=== PATIENT | male | born 1960 | race Caucasian/White ===

== ENCOUNTER 2023-08-16 10:28 | Outpatient (AMB) | payer OTHER, MEDICAID, SELFPAY ==
--- NOTE | 2023-08-16 10:55 | MHC.OFFVIS ---
Intake Vital Signs 08/16/23 10:56 Height 5 ft 2 in Weight 135 lb BMI 24.7 BP 110/70 Blood Pressure Location Rt brachial Position Sitting Respiration 17 Pulse 67 Pulse Source Pulse Oximeter Pulse Oximetry (%) 96 Oxygen Delivery Method Room Air Intake Visit Reasons: ENP-Chronic Insomnia - confirmed Intake Note: Pt presents tothe office for new pt evaluation for insomnia. Pt reports he has trouble staying asleep for the past 5 years. 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 Allergies nuts Allergy (Mild, Uncoded 08/16/23 10:56) Unknown Medication List - Last Reconciled 08/16/23 by Everton Devine CNP alendronate 70 mg PO QWEEK baclofen 10 mg PO TID calcium carbonate-vitamin D3 500 mg-10 mcg (400 unit) (Calcium 500 With D) 1 tab PO DAILY cetirizine (All Day Allergy (cetirizine)) 10 mg PO DAILY PRN epinephrine IM ONCE gabapentin 600 mg PO TID magnesium oxide 400 mg PO DAILY 30 days naloxone 4 mg/actuation (Narcan) 0 sprays intranasal nystatin 1 appl topical BID oxybutynin chloride ER 15 mg PO DAILY oxycodone ER (OxyContin) 20 mg PO TID pravastatin 40 mg PO DAILY siponimod (Mayzent) 0 mg PO tamsulosin 0.4 mg PO DAILY varenicline 1 mg PO BID HPI HPI Comments History of Present Illness Details 63 y/o male patient presents for new in-person visit for sleep consultation. Pt states that he does not sleep well. He can fall asleep but having difficulty staying sleep. He uses melatonin 5 mg, but wakes up in the middle of night. Pt reports he has hx of sleep apnea but he never had CPAP, and scheduled for a repeat sleep study in October. He usually sleep in his power wheel chair which the seat reclined and he feels he sleeps well in it. 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 Sleep questionnaire: Have you ever been diagnosed with a sleep disorder? Insomnia and BERENICE. Have you ever had a sleep study in the past? Yes, in the past. Have you ever been treated for a sleep disorder? No. Do you take medications for a sleep disorder? Melatonin 5 mg. Do you snore? Don't know. Do you wake up gasping at night? No. Do you have episodes of apneas? Don't know. If yes, are they witnessed? No. Do you have episodes of nocturnal chest pain or dyspnea? No. Do you have difficulty initiating sleep? No. Do you have difficulty maintaining sleep? Yes. Do you wake up tired? Yes. Do you have headaches upon awakening? No. Do you wake up with dry mouth or throat? Yes. Do you have GERD? No. Do you have nocturia? No. Do you have nocturnal leg cramps? Yes. Do you have symptoms of restless legs? Yes. Do you act out your dreams? No. Sleep hygiene questionnaire: What is your usual sleep routine? Usual bedtime is at 10 pm ; Usual wake up time is at 7:30- 8 am. Do you take naps? No. Is your sleep environment cool, dark, and quiet? Yes. Do you exercise? No. Do you take caffeine or other stimulants? 2 cups of coffee. Do you use electronics in bed? Yes, watches TV. What is your work schedule? N/A/ Hypersomnolence questionnaire: Do you have daytime tiredness or fatigue? Yes. Do you easily fall asleep when inactive? No. Have you ever had episodes of sudden weakness? No. Have you ever had episodes of sudden weakness associated with strong emotions? No. PFSH Surgical History Hx of colonoscopy Review of Systems Const All systems reviewed & are unremarkable except as noted in HPI and below Physical Exam Vital Signs: Last Vital Signs Pulse 67 08/16/23 10:56 Resp 17 08/16/23 10:56 BP 110/70 08/16/23 10:56 Pulse Ox 96 08/16/23 10:56 Oxygen Delivery Method Room Air 08/16/23 10:56 BMI result Body Mass Index 24.7 Const General: cooperative and tired appearing Orientation/consciousness: patient oriented x3 Limitations: wheelchair Neck Neck: Yes full ROM and Yes supple Resp Effort & Inspection: normal respiratory effort and able to speak in complete sentences Neuro General: patient oriented x3 Cranial nerves: Yes CN's II-XII intact bilaterally Assessment & Plan Assessment & Plan (1) Hx of sleep apnea: Code(s): Z86.69 - Personal history of other diseases of the nervous system and sense organs (2) Difficulty sleeping: Code(s): G47.9 - Sleep disorder, unspecified Plan Pt has hx of sleep apnea, and sleep study scheduled in October. Advised patient to undergo sleep study to assess sleep apnea, and will follow up of the result for appropriate treatment options. Sleep hygiene education provided, advised patient to limit smoking before bedtime. Advised patient to try magnesium 400 mg qHS for help sleep, continue to take melatonin, and can increase up to 10 mg. Medications: New magnesium oxide 400 mg PO DAILY 30 tabs 2RF 30 days oxycodone ER (OxyContin) 20 mg PO TID Coding Level of Care Code New Pt Level 3 (71182) Diagnoses Hx of sleep apnea Z86.69 Difficulty sleeping G47.9
[2023-08-16 10:56] VITALS: BP 110/70; PULSE 67; RESP 17; O2SAT 96; BMI 24.7
== END 2023-08-16 11:24 | disposition home or self-care (01) ==
PROVIDERS: PCP Registered Nurse; Visit Provider Nurse Practitioner Family
DX: Z86.69 Personal history of other diseases of the nervous system and sense organs (principal); G47.9 Sleep disorder, unspecified
CPT/HCPCS: 99203

== ENCOUNTER → 2023-08-16 10:28 | Outpatient (BNVA) | payer OTHER, MEDICAID, SELFPAY | PROVIDERS: PCP Registered Nurse; Visit Provider Nurse Practitioner Family | DX: G47.9 Sleep disorder, unspecified (principal); Z86.69 Personal history of other diseases of the nervous system and sense organs | CPT/HCPCS: 99202 ==

== ENCOUNTER 2023-11-12 09:52 | Outpatient (AMB) | payer OTHER, MEDICAID, SELFPAY ==
--- NOTE | 2023-11-12 09:57 | MHC.OFFVIS ---
Vital Signs 11/12/23 09:57 Height 5 ft 2 in Intake Visit Reasons: 2M follow up insomnia - CONF w/address Intake Note: Patient presents for 2 month follow up insomnia. patient is sleeping better. Allergies nuts Allergy (Mild, Uncoded 11/12/23 09:59) Unknown HPI Comments Details: 63 y/o male patient presents for follow up of insomnia. Pt reports he sleeps better, can sleep 7-8 hrs. He uses melatonin 5 mg, and also tried magensium 400 mg. He started to sleep on his bed, not power wheel chair anymore. He used to sleep in his power wheel chair which the seat reclined. Pt reports he has hx of sleep apnea but he never had CPAP, and had a repeat sleep study done in October. He is followed by [facility] pulmonolotist, Dr. Huynh. [facility] Surgical History Hx of colonoscopy Review of Systems Const All systems reviewed & are unremarkable except as noted in HPI and below Physical Exam Const General: cooperative Orientation/consciousness: patient oriented x3 Limitations: wheelchair Neck Neck: Yes full ROM and Yes supple Resp Effort & Inspection: normal respiratory effort and able to speak in complete sentences Neuro General: patient oriented x3 Cranial nerves: Yes CN's II-XII intact bilaterally Assessment & Plan Assessment & Plan (1) Difficulty sleeping: Code(s): G47.9 - Sleep disorder, unspecified Category: Medical Plan Continue to practice sleep hygiene, advised patient to limit smoking before bedtime. Continue to take magnesium 400 mg qHS for help sleep, continue to take melatonin, and can increase up to 10 mg. Medications: Changed From magnesium oxide 400 mg PO DAILY 30 days 30 tabs 2RF To magnesium oxide 400 mg PO DAILY 90 tabs 3RF 90 days
== END 2023-11-12 10:37 | disposition home or self-care (01) ==
PROVIDERS: PCP Registered Nurse; Visit Provider Nurse Practitioner Family
DX: G47.9 Sleep disorder, unspecified (principal)
CPT/HCPCS: 99213

== ENCOUNTER → 2023-11-12 09:52 | Outpatient (BNVA) | payer OTHER, MEDICAID, SELFPAY | PROVIDERS: PCP Registered Nurse; Visit Provider Nurse Practitioner Family | DX: G47.9 Sleep disorder, unspecified (principal) | CPT/HCPCS: 99212 ==